=== PATIENT | male | born 1965 | race Caucasian/White ===

== ENCOUNTER → 2024-12-13 09:43 | Outpatient (BNVA) | payer OTHER, SELFPAY | PROVIDERS: Visit Provider Physician Assistant | DX: S46.911A Strain of unspecified muscle, fascia and tendon at shoulder and upper arm level, right arm, initial encounter (principal); X50.3XXA Overexertion from repetitive movements, initial encounter; Z02.79 Encounter for issue of other medical certificate | CPT/HCPCS: 73030; 99204 ==

== ENCOUNTER 2024-12-25 07:47 | Outpatient (REF) | payer OTHER, SELFPAY ==
--- NOTE | ~2024-12-25 | MR_ITS ---
EXAMINATION: MR SHOULDER, RIGHT CLINICAL INFORMATION: Right shoulder pain, history of rotator cuff repair 10 years prior. Rotator cuff weakness. Evaluate for tear. COMPARISON: No prior MRI. Correlation with right shoulder radiographs 12/13/2024. TECHNIQUE: Multiplanar multisequence MR imaging of the right shoulder was done without IV contrast. Examination performed on a 1.5 Trina Siemens unit utilizing standard sequences. FINDINGS: Rotator Cuff and Biceps Tendon: Supraspinatus: Prior supraspinatous repair with 2 surgical anchors in the greater tuberosity of the humeral head. There is localized susceptibility artifact, obscuring immediately adjacent soft tissue and bone. There is an interstitial myotendinous type tear spanning approximately 1.9 cm (series 9, image 13), which may extend to the undersurface of the tendon within the critical zone. There is thinning of the entire tendon, possibly on the basis of postop changes versus degenerative type tearing. No gross full-thickness tear or tendinous retraction identified. There is minimal atrophy of the muscle belly. Infraspinatus: Prior infraspinatus repair. The repaired tendon is somewhat thickened although the majority of the fibers appear grossly intact. There is increased intrasubstance signal within the tendon, suggestive of tendinopathy. No full-thickness tear or tendinous retraction identified. There is minimal atrophy of the muscle belly. Subscapularis: There is a full-thickness subscapularis insertional tear, extending to the mid tendon undersurface (series 5, image 13-15). In addition, there is approximately 50% undersurface tearing of the mid tendon. The bicipital tendon is subluxed medially out of the groove. There is no atrophy of the muscle belly. Teres Minor: Intact and normal in signal without definitive tear. Biceps Long Head: Subluxed medially out of the bicipital groove. Otherwise, the tendon appears intact and normal in signal. The tendon within the rotator interval appears grossly normal. The anchor appears intact. AC Joint and Acromiohumeral Arch: Moderate arthritis of the AC joint with predominantly superior superior and mild undersurface spurring. There is joint capsular distention, as well as mild periarticular edema. No evidence of supraspinatus outlet stenosis. There is a type II acromion. No significant subacromial spurring. There is mild to moderate narrowing of the subacromial space. Glenohumeral Joint and Labrum: There is normal joint fluid present. There is mild superior subluxation of the humeral head upon the glenoid. Mild glenohumeral degenerative arthritis with superficial cartilaginous thinning and eburnation, without full-thickness defect. There are tiny marginal spurs. The glenoid labrum is difficult to assess due to motion artifact. There is probable degenerative type tearing of the superior and anterior labrum. The posterior and inferior labrum grossly appear intact within limitations. Osseous Structures: No additional bone marrow abnormality to suggest contusion or fracture. No suspicious bone lesions. Spino-glenoid Notch: Normal. Quadrilateral Space: Normal. Other: Small amount of fluid in the subacromial/subdeltoid bursa, suggestive of mild bursitis. Glenohumeral ligaments are grossly normal in appearance and intact. No thickening noted. MR/MR shoulder RT wo con IMPRESSION: 1. Prior supraspinatus repair. The repaired tendon is thinned in appearance, with a 50% approximate thickness myotendinous tear appearing to extend to the undersurface of the mid tendon. No full-thickness tear or tendinous retraction identified. There is minimal atrophy of the muscle belly. There is mild to moderate narrowing of the subacromial space. 2. Prior infraspinatus repair. Mild tendinopathy of the repaired tendon without full-thickness tear or retraction. There is minimal atrophy of the muscle belly. 3. Full-thickness insertional tear of the distal subscapularis tendon, with associated approximately 50% undersurface tear of the mid tendon. No atrophy of the muscle belly. 4. The long head of the bicipital tendon is subluxed medially out of the bicipital groove. The tendon itself appears intact. 5. Moderate predominantly superior surface spurring of the AC joint, with mild periarticular edema and probable remote postoperative changes. No supraspinatus outlet stenosis. 6. Suspect superior and anterior degenerative type labral tearing. Somewhat limited evaluation due to motion artifact. 7. Mild subacromial/subdeltoid bursitis. Electronically signed by: Jg Burgos MD 12/25/2024 09:10 AM EDT
--- OUTSIDE RECORDS SUMMARY | 2024-12-25 07:53 | XMS_ITS ---
Author Name [facility] Organization Unknown History of Medication Use Medication Directions Dispensed Refills Start Date End Date Stat gabapentin 300 mg capsule TAKE 1 CAPSULE BY MOUTH DAILY. START FIRST DOSE THE EVENING PRIOR TO SURGERY 01/24/2023 completed Problems Problem Status Onset Date Problem Type Date of Resoluti on Source History of repair of musculotendinous cuff of shoulder active 2023-01-24 ProblemAct [facility]ON[facility] Encounters Encounter Type Encounter Reason Primary Diagnosis Location Date Ambulatory [facility] 01/30/2024 Ambulatory [facility] 06/14/2023 Ambulatory [facility] 06[facility]13/2023 Ambulatory [facility] 06/10/2023 Ambulatory [facility] 06/10/2023 Ambulatory [facility] [place] 02/13/2023 Ambulatory [facility] 01/25/2023 Ambulatory [facility] 01/24/2023 Ambulatory [facility] 01/24/2023
--- OUTSIDE RECORDS SUMMARY | 2024-12-25 07:53 | XMS_ITS | Clinical Summary ---
Author Organization [facility] Address [address] [place] [address] Care Team Providers Care Solar Field Service Technician Name Role Phone Miladis Alexander MD Primary Care Provider [phone] Allergies No known active allergies Medications Medication Sig Dispensed Refills Start Date End Date Status cephalexin (Keflex) 500 MG capsule Take 1 capsule (500 mg total) by mouth 4 (four) times a day. Start after surgery 4 capsule 0 10/05/2022 Active gabapentin (Neurontin) 300 MG capsule Take 1 capsule (300 mg total) by mouth daily. Start first dose the evening prior to surgery 3 capsule 0 10/05/2022 Active oxyCODONE (ROXICODONE) 5 MG immediate release tablet Take 1 tablet (5 mg total) by mouth every 6 (six) hours as needed for pain. Do not start until after surgery 20 tablet 0 10/05/2022 Active Active Problems Problem Noted Date Diagnosed Date Incomplete tear of right rotator cuff 04/18/2018 Right shoulder injury 04/07/2018 Family History Medical History Relation Name Comments Osteoarthritis Father Relation Name Status Comments Father Social History Tobacco Use Types Packs/Day Years Used Date Smoking Tobacco: Never Smokeless Tobacco: Never Tobacco Cessation:Counseling Given: Not Answered Alcohol Use Standard Drinks/Week Comments Yes 2 (1 standard drink = 0.6 oz pur e alcohol) Sex and Gender Information Value Date Recorded Sex Assigned at Not on file Gender Identity Not on file Sexual Orientation Not on file Job Start Date Occupation Industry Not on file Not on file Not on file Last Filed Vital Signs Vital Sign Reading Time Taken Comments Blood Pressure - - Pulse - - Temperature - - Respiratory Rate - - Oxygen Saturation - - Inhaled Oxygen Concentration - - Weight 73.5 kg (162 lb) 12/13/2022 4:07 PM EDT Height 177.8 cm (5' 10 ) 12/13/2022 4:07 PM EDT Body Mass Index 23.24 12/13/2022 4:07 PM EDT Plan of Treatment Health Maintenance Due Date Last Done Comments Hepatitis C Screening 1965 COVID-19 Vaccine (#1) 1964 Depression Screening 1976 Preventative Health Evaluation 02/05/1982 DTap / Tdap / Td (1 - Tdap) 02/05/1983 Colon Cancer Screening (Colonoscopy) 02/05/2009 Shingrix-Zoster Vaccine (1 of 2) 02/05/2014 Influenza Vaccine (#1) 2024 RSV Adult > 60+ Yrs or Pregn ant (1 - 1-dose 75+ series) 02/05/2039 Hepatitis B Vaccines Aged Out No long er eligible based on patient's age to complete this topic Pneumococcal Vaccine Aged Out No long er eligible based on patient's age to complete this topic RSV Ped < 20 months Aged Out No longe r eligible based on patient's age to complete this topic Care Teams Solar Field Service Technician Relationship Specialty Start Date End Date Miladis Alexander MD [address] [place] [address] PCP - General Internal Medicine 08/09/22
== END 2024-12-25 07:48 | disposition home or self-care (01) ==
LOC: HO.MRI 07:47
PROVIDERS: Visit Provider Internal Medicine
DX: S46.091A Other injury of muscle(s) and tendon(s) of the rotator cuff of right shoulder, initial encounter (principal)
CPT/HCPCS: 73221

== ENCOUNTER → 2024-12-25 07:59 | Outpatient (BNV) | payer OTHER, SELFPAY | PROVIDERS: Visit Provider Radiology Diagnostic Radiology | DX: S46.011A Strain of muscle(s) and tendon(s) of the rotator cuff of right shoulder, initial encounter (principal); S46.101A Unspecified injury of muscle, fascia and tendon of long head of biceps, right arm, initial encounter; Z87.39 Personal history of other diseases of the musculoskeletal system and connective tissue; M75.51 Bursitis of right shoulder | CPT/HCPCS: 73221 ==

== ENCOUNTER 2025-01-03 08:20 | Outpatient (REF) | payer OTHER, BC, SELFPAY | END 2025-01-03 08:21 | disposition home or self-care (01) | LOC: HO.HOSX 08:20 | PROVIDERS: Visit Provider Orthopaedic Surgery | DX: M25.511 Pain in right shoulder (principal); M25.311 Other instability, right shoulder | CPT/HCPCS: 99202 ==

== ENCOUNTER 2025-01-03 09:03 | Outpatient (AMB) | payer OTHER, BC, SELFPAY ==
--- NOTE | 2025-01-03 09:04 | A.OFFVIS_ITS ---
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 Patient reports the pain is located at the shoulder joint. Patient shares pain worsens with activity. Reports right rotator cuff repair about [address] Chappell. Left shoulder surgery approximately [address] Childers in [place]. 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 Physical Exam Vital Signs: BMI result Body Mass Index 23.0 Const Other: Well-nourished well-developed very friendly male awake alert and oriented x3 in no acute distress Extrem Other: Right shoulder examination shows slightly decreased range of motion when compared to his left shoulder, 4/5 strength with supraspinatus testing, Results Reviewed Results Reviewed: MRI of the patient's right shoulder shows a recurrent tear of the supraspinatus tendon, tearing of the superior half of the subscapularis tendon and diffuse thinning of the supraspinatus and infraspinatus tendons Assessment & Plan Assessment & Plan (1) Rotator cuff insufficiency of right shoulder: Code(s): M25.311 - Other instability, right shoulder Category: Medical Plan Mr. Zayas presents with recurrent right shoulder pain and weakness due to a large recurrent rotator cuff tear involving his supraspinatus and subscapularis tendons. I had a lengthy discussion with the patient regarding the treatment options. At this point the patient has failed continued non operative treatments. He is interested in undergoing revision right shoulder rotator cuff repair surgery. Because of the extent of the tear and the diffuse tendon thinni ng the patient might need grafting of the tendon to reinforce the repair at the time of surgery. Thus, I will have him evaluated by my partner, Dr. Noble, who performs this type of grafting procedure at the time of rotator cuff repair if needed. The patient will continue with his range of motion exercises in the meantime. Feel free to call me at any time should questions regarding his orthopedic management arise. I spent 21 minutes in reviewing the patient's records and imaging studies, seeing the patient and documenting in the medical record. Orders: Orders XR shoulder RT min 2V Today M25.511 - Pain in right shoulder Coding Level of Care Code New Pt Level 3 (68785) Complex EM visit Add On G2211 Diagnoses Rotator cuff insufficiency of right shoulder M25.311
--- OUTSIDE RECORDS SUMMARY | 2025-01-03 09:18 | XMS_ITS | Data Portability ---
Author Organization [place] [facility] [place] Address [address] [facility] [address] [place] [address] Care Team Providers Care French Weaver Name Role Phone TAYLER NICKERSON Referring Provider [phone] TAYLER NICKERSON Primary Care Provider Assessment Encounter Date Assessment Date Assessment LastModified by Organization Details LastModified Time 01/24/2023 01/24/2023 He is making good progress. Good return of range of motion. He still needs to work on strengthening and endurance which I discussed with him may take several more months to come around. I encouraged him to let symptoms be his guide as to how much to progress strengthening. He needs to be careful with more aggressive activities, reminded him that the rotator cuff repair is still very much healing and not as strong and robust as it needs to be. To that end, he is not able to return back to his full duty work and an updated work note was provided. Greater than 20 minutes was spent with the encounter today, including face to face time with the patient, documentation, review of records/imaging if applicable, and coordination of care. PRIOR: So far he is making progress. Has in the last few days developed some subacromial crepitation which we will need to keep an eye on. He understands that clicking and popping can be expected, but sometimes may indicate that the repair is partially compromised. We will continue physical therapy on the outlined protocol. Reevaluate in 6 weeks, sooner if symptoms dictate. ?? PRIOR: So far he is doing well. Some pain but manageable. He we will continue therapy on the outlined protocol. He can discontinue use of the waist piece of the sling, but will use the sling in total for 8 weeks from the time of surgery. ?? Keep incisions dry until sutures removed. No swimming or submerging incisions for three weeks after surgery. Sling for 8 weeks. May remove waist attachment after 4 weeks unless otherwise instructed. Start PT around week 4. Most patients participate in therapy for 8-12 weeks, but additional rehab is necessary to realize full functional goals. No active ROM shoulder for 8 weeks unless otherwise specified. Remove arm from sling to move elbow, wrist, and fingers several times a day. If a biceps tenodesis was performed as part of the surgery flexion at the elbow should be assisted by the other arm. Return to full activity is generally not expected before 5-6 months, but may take up to a year depending on the nature of the repair and other factors such as tissue quality, chronicity of the tear, patient age, and number of tendons involved. Full strength and endurance gains may not be realized until one year or later following surgery. Not available 01/24/2023 17:03:19 03/28/2023 03/28/2023 He is making stable progress now 5-1/2 months following surgery. He needs to continue to work on strengthening and endurance. He will continue therapy on the outlined protocol twice a week. Updated work note provided today. He can advance back to full duty work on 04/23/2023. If he has any problems before then he will let us know, otherwise follow-up in 8 weeks. Greater than 20 minutes was spent with the encounter today, including face to face time with the patient, documentation, review of records/imaging if applicable, and coordination of care. PRIOR: He is making good progress. Good return of range of motion. He still needs to work on strengthening and endurance which I discussed with him may take several more months to come around. I encouraged him to let symptoms be his guide as to how much to progress strengthening. He needs to be careful with more aggressive activities, reminded him that the rotator cuff repair is still very much healing and not as strong and robust as it needs to be. To that end, he is not able to return back to his full duty work and an updated work note was provided. PRIOR: So far he is making progress. Has in the last few days developed some subacromial crepitation which we will need to keep an eye on. He understands that clicking and popping can be expected, but sometimes may indicate that the repair is partially compromised. We will continue physical therapy on the outlined protocol. Reevaluate in 6 weeks, sooner if symptoms dictate. ?? PRIOR: So far he is doing well. Some pain but manageable. He we will continue therapy on the outlined protocol. He can discontinue use of the waist piece of the sling, but will use the sling in total for 8 weeks from the time of surgery. ?? Keep incisions dry until sutures removed. No swimming or submerging incisions for three weeks after surgery. Sling for 8 weeks. May remove waist attachment after 4 weeks unless otherwise instructed. Start PT around week 4. Most patients participate in therapy for 8-12 weeks, but additional rehab is necessary to realize full functional goals. No active ROM shoulder for 8 weeks unless otherwise specified. Remove arm from sling to move elbow, wrist, and fingers several times a day. If a biceps tenodesis was performed as part of the surgery flexion at the elbow should be assisted by the other arm. Return to full activity is generally not expected before 5-6 months, but may take up to a year depending on the nature of the repair and other factors such as tissue quality, chronicity of the tear, patient age, and number of tendons involved. Full strength and endurance gains may not be realized until one year or later following surgery. Not available 03/28/2023 14:51:57 06/13/2023 06/13/2023 He is doing well. I encouraged him to remain compliant with his home exercise program. He understands he may not realize full strength and endurance gains until up to and over a year from the time of surgery. He may continue to work his regular duty job. Plan to see him back on an as-needed basis. PRIOR: He is making stable progress now 5-1/2 months following surgery. He needs to continue to work on strengthening and endurance. He will continue therapy on the outlined protocol twice a week. Updated work note provided today. He can advance back to full duty work on 04/23/2023. If he has any problems before then he will let us know, otherwise follow-up in 8 weeks. PRIOR: He is making good progress. Good return of range of motion. He still needs to work on strengthening and endurance which I discussed with him may take several more months to come around. I encouraged him to let symptoms be his guide as to how much to progress strengthening. He needs to be careful with more aggressive activities, reminded him that the rotator cuff repair is still very much healing and not as strong and robust as it needs to be. To that end, he is not able to return back to his full duty work and an updated work note was provided. PRIOR: So far he is making progress. Has in the last few days developed some subacromial crepitation which we will need to keep an eye on. He understands that clicking and popping can be expected, but sometimes may indicate that the repair is partially compromised. We will continue physical therapy on the outlined protocol. Reevaluate in 6 weeks, sooner if symptoms dictate. ?? PRIOR: So far he is doing well. Some pain but manageable. He we will continue therapy on the outlined protocol. He can discontinue use of the waist piece of the sling, but will use the sling in total for 8 weeks from the time of surgery. ?? Keep incisions dry until sutures removed. No swimming or submerging incisions for three weeks after surgery. Sling for 8 weeks. May remove waist attachment after 4 weeks unless otherwise instructed. Start PT around week 4. Most patients participate in therapy for 8-12 weeks, but additional rehab is necessary to realize full functional goals. No active ROM shoulder for 8 weeks unless otherwise specified. Remove arm from sling to move elbow, wrist, and fingers several times a day. If a biceps tenodesis was performed as part of the surgery flexion at the elbow should be assisted by the other arm. Return to full activity is generally not expected before 5-6 months, but may take up to a year depending on the nature of the repair and other factors such as tissue quality, chronicity of the tear, patient age, and number of tendons involved. Full strength and endurance gains may not be realized until one year or later following surgery. Not available 06/13/2023 13:15:07 Plan of Treatment Reminders Order Date Submit Date Provider Last Modified By Organization Details Last Modified Time Details Appointments None record ed. Lab None record ed. Referral None record ed. Procedures None record ed. Surgeries None record ed. Imaging None record ed. Medication Orders None record ed. Patient TargetsNo targets recorded. Patient InstructionsNo instructions recorded. Reason for Referral None Reported. Problems Name Problem SNOMED Code Status Onset Date Resolution Date Notes Provider Name and Address Organization Details Recorded Time History of repair of musculotendino us cuff of shoulder [id number] Active 2022 Kyree Childers MD [address] [facility] [address], [facility] [place], [address] , [place] [facility] [place] 06:20:30 Problem Notes None recorded. Medical Equipment None Reported. Allergies No known drug allergies Medications Name Sig Start Date Stop Date Status Note LastModified by Organization Details LastModified Time ondansetron HCl 4 mg tablet TAKE 1 TABLET (4 MG TOTAL) BY MOUTH DAILY NEEDED FOR NAUSEA (AFTER SURGERY). 01/24 completed Not Available Not Available Not Available meloxicam 7.5 mg tablet TAKE 2 TABLETS (15 MG TOTAL) BY MOUTH DAILY FOR 7 DOSES. START THE DAY AFTER SURGERY NOT COVERED 01/24 completed Not Available Not Available Not Available cephalexin 500 mg capsule TAKE 1 CAPSULE (500 MG TOTAL) BY MOUTH 4 (FOUR) TIMES A DAY. START AFTER SURGERY 01/24 completed Not Available Not Available Not Available gabapentin 300 mg capsule TAKE 1 CAPSULE BY MOUTH DAILY. START FIRST DOSE THE EVENING PRIOR TO SURGERY 01/24 completed Not Available Not Available Not Available hydroxyzine HCl 25 mg tablet TAKE 1 TABLET BY MOUTH FOUR TIMES A DAY NEEDED FOR ANXIETY active Not Available Not Available No t Available oxycodone 5 mg tablet PLEASE SEE ATTACHED FOR DETAILED DIRECTION S 01/24 completed Not Available Not Available Not Available Vitals Date Recorded Body height Body mass index (BMI) Body weight Provider Name and Address Organization Details Last Updated DateTime 01/24/2023 177.8 cm 22.8 kg/m2 [address]7912.[address] [place] [facility] [place] 01/24/2023 15:23:25 Date Recorded Body height Body mass index (BMI) Body weight Provider Name and Address Organization Details Last Updated DateTime 03/28/2023 177.8 cm 23.2 kg/m2 [address] [place] [facility] [place] 03/28/2023 14:22:38 Date Recorded Body height Body mass index (BMI) Body weight Provider Name and Address Organization Details Last Updated DateTime 06/13/2023 177.8 cm 23.4 kg/m2 [address]96.[address] [place] [facility] [place] 06/13/2023 13:01:18 Social History None recorded. Functional Status None recorded. Mental Status None recorded. Family History Nothing Reported. Medical History No medical history recorded. Past Encounters Encounter ID Performer Location Encounter Start Date Encounter Closed Date Diagnosis/Indication Diagnosis SNOMED-CT Code Diagnosis ICD10 Code Diagnosis Note [id number] MD POLI Mccarty [facility] [address] [facility] [address] [place] [address] 01/24/2023 15:11:41 01/24/2023 15:46:26 History of repair of musculotendinous cuff of shoulder [id number] Z98.890 [id number] MD POLI Mccarty [facility] [address] [facility] [address] [place] [address] 03/28/2023 14:16:26 03/28/2023 14:35:53 History of repair of musculotendinous cuff of shoulder [id number] Z98.890 [id number] MD POLI Mccarty [facility] [address] [facility] [address] [place] [address] 06/13/2023 12:52:07 06/13/2023 13:15:58 History of repair of musculotendinous cuff of shoulder [id number] Z98.890 10/06/2022: Left shoulder RCR (double row with margin convergenc e), scope biceps tenodesis, SAD/acromi oplasty, labral debridemen t, small area grade IV anterior/i nferior glenoid Health Concerns Section Related Observation LastModified by Organization Detai ls LastModified Time None Recorded Concern Status LastModified by Organization Details LastModified Time None Recorded Advance Directives Directive None Recorded Payers Encounter Date Sequence Insurance Name Policy Number Policy Miller Covered Member ID Miller Member ID Guarantor Name 01/24/2023 1 [place] [facility] [employer] ([facility]) [id number] Javier Damon Marquez [id number] Javier Zayas 03/28/2023 1 [place] [facility] [employer] ([facility]) [id number] Javier Nelson Marquez [id number] Javier Zayas 06/13/2023 1 [place] [facility] ([facility]) [id number] Javier Zayas [id number] Javier Zayas Notes Date Note Type Note Provider Name and Address Organization Details Recorded Time 01/24/2023 text/html 10/06/2022: Left shoulder RCR (double row with margin convergence), scope biceps tenodesis, SAD/acromioplasty, labral debridement, small area grade IV anterior/inferior glenoidHe is now 3-1/2 months following his rotator cuff repair. He feels he is making good progress. He continues therapy twice a week in addition to a home exercise program. He rates his pain between a 0 to a 3 on a 10 point scale. PRIOR:The patient is now 9 weeks post-op. He feels he is making steady progress. In the last 4 to 5 days he has had a bit more crepitation in the shoulder. He continues in therapy a couple times a week at [facility]. He has now weaned out of the sling completely.??PRIOR :So far doing well. Having some episodic pain around the shoulder and arm but nothing consistent. Compliant wearing the sling. Has had one session of physical therapy so far.??PRIOR:Overal l doing well. Pain can range between a 4 to an 8 on a 10 point scale. He denies any problems with the incisions. He is taking ibuprofen and Tylenol. He denies any fevers or chills. He denies any calf pain chest pain or shortness of breath. Kyree Childers MD [address] [place] [address], [phone], [place] [facility] [place] 01/24/2023 17:04:37 03/28/2023 text/html 10/06/2022: Left shoulder RCR (double row with margin convergence), scope biceps tenodesis, SAD/acromioplasty, labral debridement, small area grade IV anterior/inferior glenoidHe is now 5-1/2 months following his left shoulder rotator cuff repair. Overall he feels he is making good progress. He continues to strengthen in therapy, attending twice a week. He notes some soreness that can last for a day or 2 after therapy exercises, but it tends to settle down quickly. PRIOR:He is now 3-1/2 months following his rotator cuff repair. He feels he is making good progress. He continues therapy twice a week in addition to a home exercise program. He rates his pain between a 0 to a 3 on a 10 point scale. PRIOR:The patient is now 9 weeks post-op. He feels he is making steady progress. In the last 4 to 5 days he has had a bit more crepitation in the shoulder. He continues in therapy a couple times a week at [facility]. He has now weaned out of the sling completely.??PRIOR :So far doing well. Having some episodic pain around the shoulder and arm but nothing consistent. Compliant wearing the sling. Has had one session of physical therapy so far.??PRIOR:Overal l doing well. Pain can range between a 4 to an 8 on a 10 point scale. He denies any problems with the incisions. He is taking ibuprofen and Tylenol. He denies any fevers or chills. He denies any calf pain chest pain or shortness of breath. Kyree Childers MD [address] [place] [address], [phone], [place] [facility] [place] 03/28/2023 15:06:00 06/13/2023 text/html 10/06/2022: Left shoulder RCR (double row with margin convergence), scope biceps tenodesis, SAD/acromioplasty, labral debridement, small area grade IV anterior/inferior glenoidHe is now over 8 months following his left shoulder surgery. He is doing well. He is back to regular duty work. He still feels some weakness with certain activities overhead or out away from his body, but overall improving. He has completed formal therapy, continues with a home exercise program a few times a week. PRIOR:He is now 5-1/2 months following his left shoulder rotator cuff repair. Overall he feels he is making good progress. He continues to strengthen in therapy, attending twice a week. He notes some soreness that can last for a day or 2 after therapy exercises, but it tends to settle down quickly. PRIOR:He is now 3-1/2 months following his rotator cuff repair. He feels he is making good progress. He continues therapy twice a week in addition to a home exercise program. He rates his pain between a 0 to a 3 on a 10 point scale. PRIOR:The patient is now 9 weeks post-op. He feels he is making steady progress. In the last 4 to 5 days he has had a bit more crepitation in the shoulder. He continues in therapy a couple times a week at [facility]. He has now weaned out of the sling completely.??PRIOR :So far doing well. Having some episodic pain around the shoulder and arm but nothing consistent. Compliant wearing the sling. Has had one session of physical therapy so far.??PRIOR:Overal l doing well. Pain can range between a 4 to an 8 on a 10 point scale. He denies any problems with the incisions. He is taking ibuprofen and Tylenol. He denies any fevers or chills. He denies any calf pain chest pain or shortness of breath. Kyree Childers MD [address] [place] [address], [phone], [place] [facility] [place] 06/14/2023 08:27:27
--- OUTSIDE RECORDS SUMMARY | 2025-01-03 09:18 | XMS_ITS | Clinical Summary ---
Author Organization [facility] Address [address] [place] [address] Care Team Providers Care Master [place] Name Role Phone Miladis Alexander MD Primary Care Provider [phone] Allergies No known active allergies Medications Medication [...] age to complete this topic Care Teams Master [place] Relationship Specialty Start Date End Date Miladis Alexander MD [address] [place] [address] PCP - General Internal Medicine 08/09/22
[2025-01-03 09:28] VITALS: BMI 23.0
== END 2025-01-03 09:41 | disposition home or self-care (01) ==
LOC: HO.HOS 09:04
PROVIDERS: Visit Provider Orthopaedic Surgery
DX: M25.311 Other instability, right shoulder (principal)
CPT/HCPCS: 99203; G2211

== ENCOUNTER 2025-02-21 09:10 | Outpatient (AMB) | payer OTHER, SELFPAY ==
--- NOTE | 2025-02-21 09:13 | A.OFFVIS_ITS ---
Vital Signs 02/21/25 09:16 Height 5 ft 10 in Weight 160 lb BMI 23.0 Intake Visit Reasons: OV- Right shoulder WC injury-DOI 09/13/24 Intake Note: Javier is a 60 year old right hand dominant male who presents today for a follow up of his right shoulder, He sustained a work related injury to the right shoulder on 09/13/24. 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 No physical therapy has been done. He was last seen with Dr. Chappell who referred him to discuss surgical treatment options. He takes mOtrin PRN Pain. Denies numbness and tinlging. Currently he is having pain in the right shoulder that is increased with all acitivity. Hx of Right RTC Repair done at [facility] about 10-12 years ago. Allergies No Known Allergies Allergy (Verified 01/03/25 09:28) HPI HPI OV- Right shoulder WC injury-DOI 09/13/24: Details: Javier is a 60 year old right hand dominant male who presents today for a follow up of his right shoulder, He sustained a work related injury to the right shoulder on 09/13/24. 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 No physical therapy has been done. He was last seen with Dr. Chappell who referred him to discuss surgical treatment options. He takes mOtrin PRN Pain. Denies numbness and tinlging. Currently he is having pain in the right shoulder that is increased with all acitivity. Hx of Right RTC Repair done at [facility] about 10-12 years ago. He states that prior to his injury he was able to use his right arm fully. Now he has weakness with overhead motion and can not actively participate in anything that require strength above the level of the shoulders. 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 Physical Exam Vital Signs: BMI result Body Mass Index 23.0 Const General: cooperative, healthy appearing, no acute distress and well groomed Orientation/consciousness: oriented to person and oriented to place HEENT Head: Yes normal to inspection, Yes normocephalic and Yes atraumatic Eyes General: appearance normal, both eyes and all related structures Alignment and Position: alignment normal Conjunctivae: conjunctivae normal EOM: EOMs intact bilaterally Neck Neck: Yes normal visual inspection and Yes trachea midline Resp Other: No rerpiratory distress Effort & Inspection: normal respiratory effort and able to speak in complete sentences Cardio Other: Palpable radial pulse with no appreciable rythmic abnormalities GI Other: No abdominal distension Back/Spine/Pelvis Cervical Spine: normal cervical lordosis and cervical ROM normal Skin General skin exam: no rashes or lesions noted Neuro General: oriented to person, oriented to place and gait normal Extrem Other: Right shoulder with full passive range of motion. Actively he has 4/5 out of strength with external rotation at 0 degrees and with empty can testing. + lift off. Results Reviewed Results Reviewed: I personally reviewed the MR images. MR/MR shoulder RT wo con IMPRESSION: 1. Prior supraspinatus repair. The repaired tendon is thinned in appearance, with a 50% approximate thickness myotendinous tear appearing to extend to the undersurface of the mid tendon. No full-thickness tear or tendinous retraction identified. There is minimal atrophy of the muscle belly. There is mild to moderate narrowing of the subacromial space. 2. Prior infraspinatus repair. Mild tendinopathy of the repaired tendon without full-thickness tear or retraction. There is minimal atrophy of the muscle belly. 3. Full-thickness insertional tear of the distal subscapularis tendon, with associated approximately 50% undersurface tear of the mid tendon. No atrophy of the muscle belly. 4. The long head of the bicipital tendon is subluxed medially out of the bicipital groove. The tendon itself appears intact. 5. Moderate predominantly superior surface spurring of the AC joint, with mild periarticular edema and probable remote postoperative changes. No supraspinatus outlet stenosis. 6. Suspect superior and anterior degenerative type labral tearing. Somewhat limited evaluation due to motion artifact. 7. Mild subacromial/subdeltoid bursitis. Assessment & Plan Assessment & Plan (1) Rotator cuff tear, right: Code(s): M75.101 - Unspecified rotator cuff tear or rupture of right shoulder, not s pecified as traumatic Category: Medical Plan: This is a 60-year-old with a full-thickness rotator cuff tear of the right shoulder. There are areas of maintained supraspinatus but it is diminutive and in the setting of prior surgery difficult to assess the full extent of the tearing on MRI but clinically he is weak. The subscapularis is weak and there is a full thickness tear on MRI. He is otherwise healthy and active and was able to fully use his arm 6 months ago prior to his workplace injury. I had a long discussion regarding the clinical and MRI findings. I recommend a rotator cuff repair on the right. I did explain to him the risks of surgery including infection, stiffness, inability to return to ?normal? normal function. I spent time discussing the possibility that the repair would not be possible given the quality of the tissue and that he had a prior rotator cuff repair. I suspect that the bare minimum I will be able to repair a portion of the superior cuff and augment this with a collagen bio inductive patch. It is also possible that a larger portion of the tear is repairable and that this will be restorative. Coding Level of Care Code Est Pt Level 4 (57328) Diagnoses Rotator cuff tear, right M75.101
[2025-02-21 09:16] VITALS: BMI 23.0
--- OUTSIDE RECORDS SUMMARY | 2025-02-21 09:26 | XMS_ITS | Clinical Summary ---
Author Organization [facility] Address [address] [place] [address] Care Team Providers Care Office Cleaner Name Role Phone Miladis Alexander MD Primary Care Provider [phone] Allergies No known active allergies Medications Medication [...] age to complete this topic Care Teams Office Cleaner Relationship Specialty Start Date End Date Miladis Alexander MD [address] [place] [address] PCP - General Internal Medicine 08/09/22
== END 2025-02-21 09:53 | disposition home or self-care (01) ==
LOC: HO.HOS 09:10
PROVIDERS: Visit Provider Orthopaedic Surgery
DX: S46.011A Strain of muscle(s) and tendon(s) of the rotator cuff of right shoulder, initial encounter (principal)
CPT/HCPCS: 99214

== ENCOUNTER → 2025-02-21 09:10 | Outpatient (BNVA) | payer OTHER, SELFPAY | PROVIDERS: Visit Provider Orthopaedic Surgery | DX: M75.101 Unspecified rotator cuff tear or rupture of right shoulder, not specified as traumatic (principal) | CPT/HCPCS: 99212 ==

== ENCOUNTER 2025-03-20 06:12 | Day surgery (SDC) | payer OTHER, SELFPAY ==
--- OUTSIDE RECORDS SUMMARY | 2025-02-21 10:56 | XMS_ITS | Clinical Summary ---
Author Organization [facility] Address [address] [place] [address] Care Team Providers Care Travel Rn Or Name Role Phone Miladis Alexander MD Primary Care Provider [phone] Allergies No known active allergies Medications Medication [...] age to complete this topic Care Teams Travel Rn Or Relationship Specialty Start Date End Date Miladis Alexander MD [address] [place] [address] PCP - General Internal Medicine 08/09/22
[2025-03-18 07:32] VITALS: BMI 23.0
--- NOTE | 2025-03-19 08:30 | HO.ANESPROP2 ---
Documented by User: Brooklyn Rabago NP 03/19/25 08:31 HPI - Anesthesia Eval Consult details Narrative: 60yo M for Right Arthroscopic Rotator Cuff Repair PMFSH Active Problems Active Problems: All Active Problems Rotator cuff tear, right (Acute) Rotator cuff insufficiency of right shoulder (Acute) Right shoulder pain (Acute) Past Medical History Medical History (Updated 03/20/25 @ 06:21 by Vicki Iniguez, GEOVANNA) Fracture of tibia with fibula, left, open HLD (hyperlipidemia) Anxiety Allergic rhinitis Surgical History Surgical History (Updated 03/20/25 @ 06:21 by Vicki Iniguez RN) S/P right rotator cuff repair S/P left rotator cuff repair Social History Social History Are you a primary career technical supervisor to a significant other at home: No Do you presently have visiting nurse or other home services: No Patient Tobacco Use Status: Never used Tobacco Use of substances other than those prescribed or required for medical reasons: No Have you been hit, kicked, punched, or otherwise hurt by someone within the past year? 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 Meds Allergies Allergy/AdvReac Type Severity Reaction Status Date / Time No Known Allergies Allergy Verified 03/20/25 06:19 Exam Height,Weight and Vital Signs: Height 5 ft 10 in Weight 72.575 kg Assessment and Plan Assessment Anesthesia Assessment: Chart Reviewed Documented by User: Anastasiya Andrade MD 03/20/25 08:09 PMFSH Past Medical History Medical History (Updated 03/20/25 @ 06:21 by Vicki Iniguez RN) Fracture of tibia with fibula, left, open HLD (hyperlipidemia) Anxiety Allergic rhinitis Family History Family history of problems with anesthesia: No Surgical History Surgical History (Updated 03/20/25 @ 06:21 by Vicki Iniguez RN) S/P right rotator cuff repair S/P left rotator cuff repair History of Problems with Anesthesia: No Social History Social History Are you a primary career technical supervisor to a significant other at home: No Do you presently have visiting nurse or other home services: No Patient Tobacco Use Status: Never used Tobacco Use of substances other than those prescribed or required for medical reasons: No Have you been hit, kicked, punched, or otherwise hurt by someone within the past year? 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 Meds Allergies Allergy/AdvReac Type Severity Reaction Status Date / Time No Known Allergies Allergy Verified 03/20/25 06:19 Exam Airway Mallampati Class: II TM Dist: <=3cm Neck ROM: Full Heart: rrr Lungs: cta Assessment and Plan Assessment Anesthesia Assessment: Anesthesia Plan Discussed Final Anesthetic Review Family History of Problems with Anesthesia: No History of Problems with Anesthesia: No NPO: Yes ASA Class: II and III Final Preanesthetic Review: No Changes in Pt Med Stat, Meds/Allgs Chart Reviewed, Consent Obtained/Reviewed and Anes Risks/Benef Reviewed Patient Risk: Low Procedure Risk: Intermediate Anesthetic Plan Anesthetic Plan: GA, Regional Block and Agree w/ Assess. and Plan Disposition: Standard PACU
[2025-03-20] VITALS (7 sets, daily range): BP systolic 114–130; BP diastolic 67–81; PULSE 79–95; RESP 12–16; TEMP 36.2–36.6; O2SAT 96–99; BMI 20.9
[2025-03-20] MEDS: Lactated Ringers 1,000 ML 100 ML IVCONT (06:45)
--- NOTE | 2025-03-20 07:25 | MHC.SHP ---
Pre-Procedural Eval Section A - 24 Hr Update-Section A only Date of Service: 03/20/25 The patient is an INPATIENT: No Changes since office visit: No Cold of Flu in the past 2 weeks, No New Medical Problems, No Changes in Medication and No Patient answered all questions The patient has been examined within 24 hours of the surgical procedure. The History & Physical has been completed within 30 days and I have reviewed it.: Yes Section B - Complete if H&P > 30 days Chief Complaint: Unspecified rotator cuff tear or rupture of right Allergies: Allergies Allergy/AdvReac Type Severity Reaction Status Date / Time No Known Allergies Allergy Verified 03/20/25 06:19 Plan I have reviewed the history and physical and performed a pertinent physical examination on my patient. No changes have occurred unless specified. Time Spent With Patient Time: Total time managing care of this patient today ____ minutes.
[2025-03-20] MEDS: ceFAZolin Sodium/Dextrose,Iso 2 GM/50 ML PIGGYBACK IV (08:00)
[2025-03-20] MEDS: Acetaminophen 1,000 MG/100 ML PIGGYBACK 400 MG IV (09:00)
--- NOTE | 2025-03-20 09:36 | PM.OP ---
Brief Operative Note Date of Service: 03/20/25 Pre-op diagnosis: Right shoulder RTC tear Post-op diagnosis: same Procedure: Revision RTC repair with subscapularis Implants: S&N knotless Helacoil x 3; double loaded Helacoil x 2; Regeneten Large collagen bioinductive patch Surgeon: Lucas Noble MD Anesthesia: GETA and regional Was an Stock Preparer used for this Procedure?: Yes Stock Preparer: Nimco Langley Estimated blood loss (mL): 2 IV fluids (mL): 1,000 Pathology: none sent Condition: stable Disposition: PACU
--- NOTE | 2025-03-20 10:13 | W.PM.OPN ---
Operative Note Operative Note Date of Service: 03/20/25 Narrative: Date of Service: 03/20/25 Pre-op diagnosis: Right shoulder RTC tear Post-op diagnosis: same Procedure: Revision RTC repair with subscapularis Implants: S&N knotless Helacoil x 3; double loaded Helacoil x 2; Regeneten Large collagen bioinductive patch Surgeon: Lucas Noble MD Anesthesia: GETA and regional Was an Coronary Care Unit Nurse used for this Procedure?: Yes Coronary Care Unit Nurse: Nimco Langley Estimated blood loss (mL): 2 IV fluids (mL): 1,000 Pathology: none sent Condition: stable Disposition: PACU Procedure in detail: Patient was brought to the operating room and placed the the beach chair position. All bony prominences were well padded and the limb was prepped and draped in standard sterile fashion. A time out was called to identify proper site, proper procedure and proper surgeon. IV antibiotics per weight were administered. I began by making a posterolateral stab incision with a 15 blade. A blunt trochar was placed into the glenohumeral joint and I insufflated the joint with saline and a 30 degree arthroscope was placed. I established an outside- in anterior portal just distal to the biceps tendon. I then began my inspection of the glenohumeral joint. The biceps was normal as was the superior labrum. There was frayuing of the anterior labrum. The cartilage surfaces were normal. The subscapularis was torn ( superior 50%) There was suture and severe fraying of the undersurface of the supraspinatus. I placed two sutures through the leading edge of the subscapularis and, after debriding the insertion site, dunked the tendon into a 5.0 knotless Helacoil via and anterior portal. I then removed the trochar and entered the subacromial space. A direct lateral portal was then established and I performed a bursectomy. The cuff was then examined. There was a full thickness tear of the supraspinatus without retraction. The tear was mobile. I placed two medial row double loaded anchors after using a tap just adjacent to the articular cartilage and then brought the suture limbs ( 8) through the medial cuff. I then debrided the bare area down to bleeding bone and, using a cross bridge configuration, brought 4 limbs to each of two lateral 5.0 anchors. This re-approximated the cuff anatomy anatomically. I then elected to place a large Regeneten patch given the tissue quality. The patch was inserted via the anterolateral portal and peek stephanie were used on the soft tissue and peek bone stephanie were used laterally to cover the area of repair. Once I was satisfied with the repair final images were captured and I removed all instrumentation. Portals were closed with nylon. Patient was placed in an abduction sling, extubated and brought to the recovery room in stable condition. There were no known complications.
== END 2025-03-20 11:43 | disposition home or self-care (01) ==
LOC: HO.SSS 06:12
PROVIDERS: Visit Provider Orthopaedic Surgery
PROC: (CPT 29827; principal; 2025-03-20 07:30)
DX: S46.011A Strain of muscle(s) and tendon(s) of the rotator cuff of right shoulder, initial encounter (principal); M25.511 Pain in right shoulder; R53.1 Weakness; Z98.890 Other specified postprocedural states; X50.3XXA Overexertion from repetitive movements, initial encounter; Y93.89 Activity, other specified; Y92.89 Other specified places as the place of occurrence of the external cause; Y99.0 Civilian activity done for income or pay; E78.5 Hyperlipidemia, unspecified; F41.9 Anxiety disorder, unspecified; J30.9 Allergic rhinitis, unspecified; Z87.81 Personal history of (healed) traumatic fracture
CPT/HCPCS: 29827; C1713; C1763; J0131; J0171; J0665; J0690; J1100; J2003; J2250; J2371; J2405; J2704; J3010

== ENCOUNTER → 2025-03-20 06:12 | Outpatient (BNV) | payer OTHER, SELFPAY | PROVIDERS: Visit Provider Orthopaedic Surgery | DX: S46.011A Strain of muscle(s) and tendon(s) of the rotator cuff of right shoulder, initial encounter (principal) | CPT/HCPCS: 29827 ==

== ENCOUNTER 2025-03-28 09:18 | Outpatient (AMB) | payer OTHER, SELFPAY ==
--- NOTE | 2025-03-28 09:21 | MHC.OFFVIS ---
Vital Signs 03/28/25 09:24 Height 5 ft 10 in Weight 150 lb BMI 21.5 Handedness Right Intake Visit Reasons: PO RT RTC repair 03/20/25 NE Intake Note: Javier is a 60 year old right hand dominant male who presents today for a post operative appointment s/p right RTC repair 03/20/25 NE. Patient reports he has intermittent pain when he rmeoves the sling to shower and get dressed other crowell he has no pain. Reports mild numbness on the bottom of his forearm and assumes it may be from the sling. Allergies No Known Allergies Allergy (Verified 03/28/25 09:25) HPI HPI PO RT RTC repair 03/20/25 NE: Details: Mr. Zayas is a 60-year-old male who presents to the office today status post right shoulder rotator cuff repair with subscap repair performed on 03/20/[address] Noble. Patient states overall he is doing very well. He has not scheduled any physical therapy appointments at this time and would like to attend an outside facility. This is a workman's comp case. He is wearing his sling appropriately. Overall he is doing very well with no complaints. 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 External rotation to neutral. Incision sites are clean dry and intact. Sutures intact. No surrounding erythema or drainage. No signs of infection. NVI. Assessment & Plan Assessment & Plan (1) S/P left rotator cuff repair: Code(s): Z98.890 - Other specified postprocedural states Category: Surgical Plan Mr. Zayas is a 60-year-old male who presents to the office today status post right shoulder rotator cuff repair with subscap repair performed on 03/20/[address] Noble. Patient states overall he is doing very well. He has not scheduled any physical therapy appointments at this time and would like to attend an outside facility. This is a workman's comp case. He is wearing his sling appropriately. Overall he is doing very well with no complaints. While in the office today sutures were removed and Steri-Strips were applied. He was instructed to remain in his sling for 6 weeks. I provided him with a physical therapy prescription to attend an outside facility with the instruction that he should begin physical therapy as soon as possible. He will follow up in [address] Noble, sooner if needed. Orders: Orders PT Evaluation and Treatment Today M75.101 - Unspecified rotator cuff tear or rupture of right shoulder, not specified as traumatic Coding Level of Care Code Global (87126) Diagnoses S/P left rotator cuff repair Z98.890
[2025-03-28 09:24] VITALS: BMI 21.5
== END 2025-03-28 10:16 | disposition home or self-care (01) ==
LOC: HO.HOS 09:19
PROVIDERS: Visit Provider Physician Assistant
DX: Z98.890 Other specified postprocedural states (principal)
CPT/HCPCS: 99024

== ENCOUNTER → 2025-03-28 09:18 | Outpatient (BNVA) | payer OTHER, SELFPAY | PROVIDERS: Visit Provider Physician Assistant | DX: Z98.890 Other specified postprocedural states (principal) | CPT/HCPCS: 99212 ==

== ENCOUNTER 2025-04-25 08:46 | Outpatient (AMB) | payer OTHER, SELFPAY ==
[2025-04-25 08:48] VITALS: BMI 21.5
--- NOTE | 2025-04-25 08:48 | MHC.OFFVIS ---
Vital Signs 04/25/25 08:48 Height 5 ft 10 in Weight 150 lb BMI 21.5 Intake Visit Reasons: PO RT RTC repair 03/20/25 NE-4WK follow up Intake Note: Javier is a 60 year old right hand dominant male who presents today for a post operative appointment s/p right RTC repair 03/20/25 NE. Patient reports he is doing well, however he is having an aching pain. Has been attending physical therapy for about 2 weeks, has been icing at home. Allergies No Known Allergies Allergy (Verified 04/25/25 08:56) HPI HPI PO RT RTC repair 03/20/25 NE-4WK follow up: Details: Javier is a 60 year old right hand dominant male who presents today for a post operative appointment s/p right RTC repair 03/20/25 NE. Patient reports he is doing well, however he is having an aching pain. Has been attending physical therapy for about 2 weeks, has been icing at home. 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 S/p subscap and supraspinatus. May d/c/ sling. F/u 6 weeks. Continue PT Coding Level of Care Code Global (71378) Diagnoses S/P left rotator cuff repair Z98.890
--- OUTSIDE RECORDS SUMMARY | 2025-04-25 09:13 | XMS_ITS ---
[...] Diagnosis Location Date Ambulatory [facility] 01/30/2024 Ambulatory [facility] 06/14/2023 Ambulatory [facility] 06/13/2023 Ambulatory [facility] 06/10/2023 Ambulatory [facility] 06/10/2023 Ambulatory [facility] 02/13/2023 Ambulatory [facility] 01/25/2023 Ambulatory [facility] 01/24/2023 Ambulatory [facility] 01/24/2023
--- OUTSIDE RECORDS SUMMARY | 2025-04-25 09:13 | XMS_ITS | Clinical Summary ---
Author Organization [facility] Address [address] [place] [address] Care Team Providers Care Crowd Controller Name Role Phone Miladis Alexander MD Primary Care Provider +1 [phone] Allergies No known active allergies Medications Medication [...] (1 of 2) 02/05/2014 Influenza Vaccine (#1) 2025 RSV Adult > 60+ Yrs or Pregn [...] age to complete this topic Care Teams Crowd Controller Relationship Specialty Start Date End Date Miladis Alexander MD [address] [place] [address] PCP - General Internal Medicine 08/09/22
== END 2025-04-25 09:16 | disposition home or self-care (01) ==
LOC: HO.HOS 08:47
PROVIDERS: Visit Provider Orthopaedic Surgery
DX: Z98.890 Other specified postprocedural states (principal)
CPT/HCPCS: 99024

== ENCOUNTER → 2025-04-25 08:46 | Outpatient (BNVA) | payer OTHER, SELFPAY | PROVIDERS: Visit Provider Orthopaedic Surgery | DX: Z98.890 Other specified postprocedural states (principal) | CPT/HCPCS: 99212 ==

== ENCOUNTER 2025-06-06 08:40 | Outpatient (AMB) | payer OTHER, SELFPAY ==
--- NOTE | 2025-06-06 08:42 | A.OFFVIS_ITS ---
Intake Visit Reasons: PO RT RTC repair 03/20/25 NE Intake Note: Javier is a 60 year old right hand dominant male who presents today for a post operative appointment about 6 weeks s/p right RTC repair (subscap and supraspinatus) 03/20/25 NE. This is a Workers Comp injury from 09/13/2024 & he remains out of work at this time. Continues to work with Physical Therapy at [facility] in [place]. He reports no concerns at this time Allergies No Known Allergies Allergy (Verified 06/06/25 08:42) HPI HPI PO RT RTC repair 03/20/25 NE: Details: Javier is a 60 year old right hand dominant male who presents today for a post operative appointment about 6 weeks s/p right RTC repair (subscap and supraspinatus) 03/20/25 NE. This is a Workers Comp injury from 09/13/2024 & he remains out of work at this time. Continues to work with Physical Therapy at [facility] in [place]. 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 He had subscap and supraspinatus repaired. He may begin progressive strengthening with PT. remain out of work. Follow up 6 weeks. Coding Level of Care Code Global (03722) Diagnoses S/P right rotator cuff repair Z98.890
--- OUTSIDE RECORDS SUMMARY | 2025-06-06 09:11 | XMS_ITS | Clinical Summary ---
Author Organization [facility] Address [address] [place] [address] Care Team Providers Care Personal Service Representative Name Role Phone Miladis Alexander MD Primary Care Provider [phone] Allergies No known active allergies Medications Medication [...] age to complete this topic Care Teams Personal Service Representative Relationship Specialty Start Date End Date Miladis Alexander MD [address] [place] [address] PCP - General Internal Medicine 08/09/22
== END 2025-06-06 09:06 | disposition home or self-care (01) ==
LOC: HO.HOS 08:41
PROVIDERS: Visit Provider Orthopaedic Surgery
DX: Z98.890 Other specified postprocedural states (principal)
CPT/HCPCS: 99024

== ENCOUNTER → 2025-06-06 08:40 | Outpatient (BNVA) | payer OTHER, SELFPAY | PROVIDERS: Visit Provider Orthopaedic Surgery | DX: Z98.890 Other specified postprocedural states (principal); Z04.2 Encounter for examination and observation following work accident | CPT/HCPCS: 99212 ==

== ENCOUNTER 2025-07-18 08:31 | Outpatient (AMB) | payer OTHER, SELFPAY ==
--- NOTE | 2025-07-18 08:39 | A.OFFVIS_ITS ---
Vital Signs 07/18/25 08:40 Height 5 ft 10 in Weight 150 lb BMI 21.5 Intake Visit Reasons: OV- RT RTC repair 03/20/25 NE Intake Note: Javier is a 60 year old right hand dominant male who presents today for a post operative appointment about 4 months s/p right RTC repair (subscap and supraspinatus) 03/20/25 NE. This is a work related injury from 09/13/2024. He remains out of work and continues to work with [employer] for progressive strengthening. Patient states that he had an increase of pain and discomfort over the last week. He is unsure if he did something while at PT. This is a constant sensation, that worsens with activity. Allergies No Known Allergies Allergy (Verified 07/18/25 08:43) HPI HPI OV- RT RTC repair 03/20/25 NE: Details: Javier is a 60 year old right hand dominant male who presents today for a post operative appointment about 4 months s/p right RTC repair (subscap and supraspinatus) 03/20/25 NE. This is a work related injury from 09/13/2024. He remains out of work and continues to work with [employer] for progressive stre ngthening. Patient states that he had an increase of pain and discomfort over the last week. He is unsure if he did something while at PT. This has not proved however he has only minimal discomfort now. He continues to be out of work. 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 He had a mild setback without any inciting event but it is starting to feel better in his motion and strength are good. Continue PT. Continue out of work. Follow up 2 months. Anticipate return to work 6-9 months postop Coding Level of Care Code Est Pt Level 3 (78520) Diagnoses S/P right rotator cuff repair Z98.890
[2025-07-18 08:40] VITALS: BMI 21.5
--- OUTSIDE RECORDS SUMMARY | 2025-07-18 08:59 | XMS_ITS | Clinical Summary ---
Author Organization [facility] Address [address] [place] [address] Care Team Providers Care Investment Counselor Name Role Phone Miladis Alexander MD Primary Care Provider [phone] Allergies No known active allergies Medications Medication [...] age to complete this topic Care Teams Investment Counselor Relationship Specialty Start Date End Date Miladis Alexander MD [address] [place] [address] PCP - General Internal Medicine 08/09/22
== END 2025-07-18 09:00 | disposition home or self-care (01) ==
LOC: HO.HOS 08:32
PROVIDERS: Visit Provider Orthopaedic Surgery
DX: Z47.89 Encounter for other orthopedic aftercare (principal); S46.011D Strain of muscle(s) and tendon(s) of the rotator cuff of right shoulder, subsequent encounter
CPT/HCPCS: 99213

== ENCOUNTER → 2025-07-18 08:31 | Outpatient (BNVA) | payer OTHER, SELFPAY | PROVIDERS: Visit Provider Orthopaedic Surgery | DX: Z47.89 Encounter for other orthopedic aftercare (principal); S46.011D Strain of muscle(s) and tendon(s) of the rotator cuff of right shoulder, subsequent encounter; X50.3XXD Overexertion from repetitive movements, subsequent encounter | CPT/HCPCS: 99212 ==

== ENCOUNTER 2025-09-05 08:35 | Outpatient (AMB) | payer OTHER, SELFPAY ==
--- NOTE | 2025-09-05 08:37 | A.OFFVIS_ITS ---
Intake Visit Reasons: OV- RT RTC repair 03/20/25 NE Intake Note: Javier is a 60 year old right hand dominant male who presents today for a follow up of his right shoulder about 5 months s/p Right RTC repair (subscap and supraspinatus) 03/20/25. This is a work related injury from 09/13/2024. He continues to work with [employer] for PT. Remains out of work at this time. Patient reports that he has completed physical therapy, he is hoping to return to work. Allergies No Known Allergies Allergy (Verified 09/05/25 08:41) HPI HPI OV- RT RTC repair 03/20/25 NE: Details: Javier is a 60 year old right hand dominant male who presents today for a follow up of his right shoulder about 5 months s/p Right RTC repair (subscap and supraspinatus) 03/20/25. This is a work related injury from 09/13/2024. He continues to work with [employer] for PT. Remains out of work at this time. Patient reports that he has completed physical therapy, he is hoping to return to work. 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 He is doing very well. Still gets soreness after several days heavy activity but no pain or weakness. May return to work without restriction. Follow up 3 months. Has not yet reached MMI. Coding Level of Care Code Est Pt Level 3 (53441) Diagnoses S/P right rotator cuff repair Z98.890
--- OUTSIDE RECORDS SUMMARY | 2025-09-05 09:22 | XMS_ITS | Clinical Summary ---
Author Organization [facility] [facility] Prior to 03/02/[address] [place] [address] Care Team Providers Care Cloth Shrinking Supervisor Name Role Phone Miladis Alexander MD Primary Care Provider [phone] Allergies No known active allergies Medications Medication [...] age to complete this topic Care Teams Cloth Shrinking Supervisor Relationship Specialty Start Date End Date Miladis Alexander MD [address] [place] [address] PCP - General Internal Medicine 08/09/22
== END 2025-09-05 09:00 | disposition home or self-care (01) ==
LOC: HO.HOS 08:35
PROVIDERS: Visit Provider Orthopaedic Surgery
DX: S46.011D Strain of muscle(s) and tendon(s) of the rotator cuff of right shoulder, subsequent encounter (principal); Z98.890 Other specified postprocedural states
CPT/HCPCS: 99213

== ENCOUNTER → 2025-09-05 08:35 | Outpatient (BNVA) | payer OTHER, SELFPAY | PROVIDERS: Visit Provider Orthopaedic Surgery | DX: Z98.890 Other specified postprocedural states (principal) | CPT/HCPCS: 99212 ==